=== PATIENT | female | born 1990 | race Hispanic/Latino ===

== ENCOUNTER 2024-10-26 13:01 | Emergency (ER) | payer MEDICAID, OTHER ==
[~2024-10-26] VITALS: Ht 167.6 cm; Wt 81.6 kg
[2024-10-26 13:34] LABS: IMMATURE GRANULOCYTE ABSOLUTE 0.02 K/uL (0-1); NUCLEATED RED BLOOD CELLS 0.0 % (0.0-0.19); PLATELET COUNT (AUTO) 235 K/uL (130-400); RED BLOOD CELL COUNT(AUTO) 4.59 MIL/uL (4.00-5.50); RED CELL DISTRIBUTION WIDTH 12.8 % (11.0-15.5); WHITE BLOOD COUNT (AUTO) 5.6 K/uL (4.8-10.8)
[2024-10-26 13:39] LABS: CREATININE 0.7 mg/dL (0.5-1.0); GLOMERULAR FILTR. RATE CALC 117.0 mL/min (>90); GLUCOSE,RANDOM 90.0 mg/dL (70-105); SODIUM SERUM 144.0 mmol/L (136-145); UREA NITROGEN, BLOOD 10.0 mg/dL (7-18)
[2024-10-26 13:50] LABS: HCG,QUANTITATIVE 1.0 mIU/mL (0-5)
[2024-10-26 14:56] VITALS: BP 124/72; PULSE 88; RESP 18; TEMP 98.2; O2SAT 99
[2024-10-26] MEDS ORDERED: PANT40TA55 PO (15:01)
--- NOTE | 2024-10-26 15:01 | ERN ---
General Chief Complaint: Sore Throat Stated Complaint: SORE THROAT/ DIFFICULTY SWOLLOWING Time Seen by MD: 13:04 Source: patient History of Present Illness Initial Comments Patient is a 34-year-old female coming in complaining of sore throat. aLong wi th the she states that she has been having some reflux. No fever no chills vomiting. Allergies: Coded Allergies: No Known Drug Allergies (Unverified Allergy, Unknown, 10/26/24) Past Medical History Past Medical History: No Pertinent History Past Surgical History: Cholecystectomy ROS Dictation CONSTITUTIONAL: No chills, no fever, no weakness, no diaphoresis, no malaise. HEAD/FACE: No signs of trauma. EENT: No eye pain, no blurred vision, no tearing, no double vision, no ear pain, no ear discharge, no nose pain, no nasal congestion, throat pain, no throat swelling, no mouth pain. RESPIRATORY: No cough, no orthopnea, no SOB, no stridor, no wheezing. CARDIOVASCULAR: No chest pain, no edema, no palpitations, no syncope. GASTROINTESTINAL/ABDOMINAL: No abdominal pain, no constipation, no diarrhea, no nausea, no vomiting. GENITOURINARY: No abnormal discharge, no dysuria, no frequent urination, no hematuria. No complaints of pain in the genitals. MUSCULOSKELETAL: No back pain, no gout, no joint pain, no joint swelling, no muscle pain, no muscle stiffness, no neck pain. INTEGUMENTARY: No change in color, no change in hair/nails, no dryness, no le ti, no lumps, no rash. NEUROLOGICAL/PSYCH: No anxiety, not depressed, no emotional problem, no headache, no numbness, no pre-existing deficit, no history of seizures, no tremors, no weakness. HEMATOLOGIC/LYMPHATIC: Not anemic, no history of blood clots, no apparent bleeding, no bruising, glands not swollen. All Systems Negative, Except as Noted. Physical Exam Physical Exam Dictation VITAL SIGNS: Reviewed. GENERAL APPEARANCE: Alert, oriented x3, no acute distress, obese. HEAD AND FACE: Non-traumatic. EYES: PERRL, pink conjunctivas, eyelid no trauma, anterior chamber clear. EARS: Pinnas intact and no signs of trauma or erythema. Ear canals clear and no discharge. TMs no erythema. NOSE: No discharge, no bleeding. OROPHARYNX: Mouth normal, teeth no caries, tongue pink. Pharynx erythema. Tonsils no exudates, no abscesses noted. Mucous membrane moist. NECK: Supple, non-tender, no thyromegaly, no masses, no JVD, no bruits. BREAST: Deferred. CHEST: No tenderness, no crepitus, no paradoxical movement, no retractions. LUNGS: Clear, well-ventilated, symmetric, no rales, no wheezing, no rhonchi, no stridor, good breath sounds bilaterally. HEART: Regular rate, regular rhythm, no murmur, no gallops. VASCULAR: No peripheral edema. ABDOMEN: Soft, positive bowel sounds, nondistended, no guarding, nontender, no rebound, no masses no hepatomegaly, no splenomegaly, no Shaw's sign, no hernias. RECTAL: Deferred. GENITAL: Deferred. NEUROLOGICAL: Normal speech, gross motor function intact, gross sensory function intact. MUSCULOSKELETAL: Neck nontender, full range of motion, back nontender, full range of motion. EXTREMITIES: Nontender, full range of motion. SKIN: Color pink, dry, no turgor, no rash, no lacerations, no abrasions, no contusions. LYMPHATICS: Deferred. Results Laboratory and Microbiology Lab and Micro Result Laboratory Tests Test 10/26/24 13:25 10/26/24 13:27 Group A Streptococcus Rapid negative (NEGATIVE) White Blood Count 5.6 K/uL (4.8-10.8) Red Blood Count 4.59 MIL/uL (4.00-5.50) Hemoglobin 13.5 g/dL (12.0-16.0) Hematocrit 39.2 % (36-48) Mean Corpuscular Volume 85.4 fL (79-99) Mean Corpuscular Hemoglobin 29.4 pg (27.0-33.0) Mean Corpuscular Hemoglobin Concent 34.4 g/dL (32.0-36.0) Red Cell Distribution Width 12.8 % (11.0-15.5) Platelet Count 235 K/uL (130-400) Mean Platelet Volume 10.2 fL (7.5-10.5) Immature Granulocyte % (Auto) 0.4 % (0-1) Neutrophils (%) (Auto) 58.8 % (40.0-77.0) Lymphocytes (%) (Auto) 32.7 % (21.0-51.0) Monocytes (%) (Auto) 4.8 % (3.0-13.0) Eosinophils (%) (Auto) 2.9 % (0.0-8.0) Basophils (%) (Auto) 0.4 % (0.0-5.0) Neutrophils # (Auto) 3.3 K/uL (1.8-7.7) Lymphocytes # (Auto) 1.8 K/uL (1.0-4.8) Monocytes # (Auto) 0.3 K/uL (0.1-1.0) Eosinophils # (Auto) 0.16 K/uL (0.00-0.70) Basophils # (Auto) 0.02 K/uL (0.00-0.20) Absolute Immature Granulocyte (auto 0.02 K/uL (0-1) Nucleated Red Blood Cells 0.0 % (0.0-0.19) Sodium Level 144 mmol/L (136-145) Potassium Level 4.4 mmol/L (3.5-5.1) Chloride Level 107 mmol/L (101-111) Carbon Dioxide Level 27 mmol/L (21-32) Blood Urea Nitrogen 10 mg/dL (7-18) Creatinine 0.7 mg/dL (0.5-1.0) Glomerular Filtration Rate Calc 117 mL/min (>90) Random Glucose 90 mg/dL (70-105) Total Calcium 8.8 mg/dL (8.5-10.1) Human Chorionic Gonadotropin, Quant 1 mIU/mL (0-5) Labs Reviewed?: Yes MDM MDM: Differential diagnosis: Pharyngitis, GERD, gastritis, Rationale: Tests considered and ordered secondary to shared decision making include: Previous outside records reviewed: Old ER visits. Risk of complication and/or morbidity or mortality of patient management: None Medications-Per medication reconciliation Need for hospitalization: Patient does not meet criteria for hospitalization. Patient is a 34-year-old female coming in complaining of throat. Patient states that this has been has a couple of the days patient is a and because he has been having laboratory workup done in the limits. I did advised her appropriate follow up with the PCP for H pylori testing. On physical exam tonsils enlarged patient received IV steroids states he feels better. Patient will be discharged in stable condition with medications. ED Course Orders Procedure Category Date Status Time Cbc With Differential LAB 10/26/24 Complete 13:19 Basic Metabolic Panel LAB 10/26/24 Complete 13:19 Hcg,Quantitative LAB 10/26/24 Complete 13:19 Rapid (Group A Strep) LAB 10/26/24 Complete 13:26 Methylprednisolone PHA 10/26/24 Complete Succ 125mg (Solu-Medr 14:30 Current Medications Medications (Trade) Dose Ordered Sig/Brie Route PRN Reason Start Time Stop Time Status Last Admin Dose Admin Methylprednisolone Sodium Succinate (Solu-medROL 125MG) 125 mg ONCE ONCE IVP 10/26/24 14:30 10/26/24 14:31 DC 10/26/24 14:23 Vital Signs Date Time Temp Pulse Resp B/P (MAP) Pulse Ox O2 Delivery O2 Flow Rate FiO2 10/26/24 13:15 98.2 92 18 120/79 98 Room Air* 0 21 10/26/24 13:06 98.2 68 16 120/79 99 Room Air 0 DX & DISP Disposition: Discharge Departure Impression: Primary Impression: Pharyngitis Additional Impression: GERD (gastroesophageal reflux disease) Condition: Stable Scripts Pantoprazole Sodium (Protonix) 40 Mg Ectab 1 TAB PO DAILY for 30 Days, #30 TAB 0 Refills Prov: SONYA MEJIA MD 10/26/24 Additional Instructions: FOLLOW-UP WITH PRIMARY CARE PROVIDER IN 1 TO 2 DAYS. TAKE MEDICATIONS DIRECTED HERE IN THE EMERGENCY ROOM. OKAY TO CONTINUE HOME MEDICATIONS UNLESS OTHERWISE DISCUSSED DURING YOUR VISIT IN THE EMERGENCY ROOM TODAY. RETURN TO YOUR NEAREST EMERGENCY ROOM IF SYMPTOMS WORSEN OR IF THERE IS NO IMPROVEMENT. CALL 911 IF YOU NEED IMMEDIATE ASSISTANCE. TAKE TYLENOL [id number] NEEDED AND IF NO CONTRAINDICATIONS ARE PRESENT. INCREASE ORAL HYDRATION. A WOUND CULTURE OR URINE CULTURE WAS ORDERED HERE IN THE EMERGENCY ROOM DEPARTMENT PLEASE FOLLOW-UP WITH PRIMARY CARE PROVIDER AND ADVISE THEM TO GET REPORTS FROM OUR FACILITY. IF YOU HAD ANY ZOILA WRAP/SPLINTS THAT WERE APPLIED HERE, PLEASE DO NOT REMOVE THEM UNTIL YOU SEE YOUR PRIMARY CARE OR SPECIALTY. Referrals: Referrals: JIGAR LAZARO PA-C (PCP) Time of Disposition: 15:00 SONYA MEJIA MD Oct 26, 2024 15:01
[2024-10-26] MEDS ORDERED: AMOX500C2 PO (15:02)
== END 2024-10-26 15:15 | disposition home or self-care (01) ==
LOC: EDH 13:01
DX: J02.9 Acute pharyngitis, unspecified (principal); K21.9 Gastro-esophageal reflux disease without esophagitis; R10.2 Pelvic and perineal pain; Z90.49 Acquired absence of other specified parts of digestive tract
CPT/HCPCS: 99283; 96374; 80048; 84702; 85025; 87880; 36415; J2919